=== PATIENT | female | born 1940 | race Caucasian/White ===

== ENCOUNTER → 2018-02-02 | Outpatient (CLI) | payer MEDICARE, OTHER ==
--- NOTE | 2018-02-02 14:15 | Diagnostic Imaging Report ---
PROCEDURE: CT ABDOMEN AND PELVIS WITHOUT CONTRAST COMPARISON:CT abdomen/pelvis 07/14/2008. INDICATIONS:CALCULUS OF KIDNEY TECHNIQUE: Axial CT images through the abdomen and pelvis were obtained without IV contrast. Coronal and sagittal reformations were created. DLP: 663.19 mGy-cm FINDINGS: Lung bases: Mild bibasilar scarring. There is diffuse bronchial wall thickening suggestive of chronic bronchitis. The anterior basal segment of the right lower lobe measures 5 mm and is stable. Noncalcified nodule in the lateral basal segment right lower lobe 4 mm and is stable. Cavitary lesion versus scar abutting the right lower lobe measures 10 x 8 mm and is new (image 10). Visualized portion of the mediastinum is normal. Liver: Normal attenuation. Low attenuating lesion in the inferior aspect of the left lobe measures 1.5 x 1.4 cm and was not present on previous exam (image 36). Spleen: Normal attenuation and size without mass. Biliary: Gallbladder is present and normal in appearance. No biliary ductal dilatation. Pancreas: No mass or duct dilatation. Adrenal Glands: No mass. Kidneys: Right kidney: 2 calculi in the upper pole each measure 1-2 mm. Isoattenuating lesion in the medial upper pole measures 1.4 x 1.4 cm and appears to be new. Low attenuating lesion in the medial upper pole cortex measures 1.6 x 1.4 cm and is grossly stable. Left kidney: Stable scarring. No calculus, cortical mass, or hydronephrosis. Vasculature: The aorta is ectatic with scattered atherosclerotic calcifications. No aneurysmal dilatation. GI: The stomach, small bowel, and large bowel are normal in diameter and wall thickness. Diverticulosis coli is present without associated inflammation. The appendix is normal. Peritoneum/Retroperitoneum: No free fluid or fluid collection. Bladder: Normal. No ureteral dilatation or calculus. Reproductive organs: The uterus is absent. There are no adnexal masses. Musculoskeletal: Levoscoliosis and superimposed degenerative changes are stable. No compression deformities or lytic/blastic lesions. CONCLUSION: 1. Punctate right renal calculi. No obstructive uropathy or evidence of recently passed stone. 2. Isoattenuating lesion in the right kidney should be further characterize with contrast-enhanced CT dedicated to the kidneys on an outpatient basis. 3. Low attenuating lesion in the liver can be further characterized with CT at the same time as the renal lesion. 4. Diverticulosis coli. No evidence of diverticulitis. 5. Scar versus cavitary lesion in the right lower lobe. Recommend CT of the chest to establish baseline for periodic surveillance. Dictated by: Melissa Mena M.D. on 02/02/2018 at 14:17 Electronically approved by: Melissa Mena M.D. on 02/02/2018 at 14:17
== END ==
LOC: CT 12:55
PROVIDERS: ATTEND Family Medicine
DX: R31.9 Hematuria, unspecified (principal)
CPT/HCPCS: 74176

== ENCOUNTER → 2018-02-05 | Outpatient (CLI) | payer MEDICARE, OTHER ==
[~2018-02-05] MED LIST: IOPAMIDOL 370 MG/ML 200 ML INFUS..BTL INJ ONE; SODIUM CHLORIDE 0.9% 50ML 50 ML ONE
--- NOTE | 2018-02-05 10:04 | Diagnostic Imaging Report ---
PROCEDURE: CT ABDOMEN WITH AND WITHOUT CONTRAST TECHNIQUE: The abdomen was scanned utilizing a multidetector helical scanner from the diaphragm to the iliac crest before and after the IV administration of 100 cc of Isovue 370. Coronal and sagittal multiplanar reformations were obtained. Renal mass protocol was performed. COMPARISON: CT abdomen and pelvis without contrast 02/03/28. INDICATIONS: RENAL MASS, LUNG NODULE FINDINGS: LOWER THORAX: Refer to the report for CT scan of the chest performed same day.. HEPATOBILIARY: No focal hepatic lesion. Previously described hypoattenuating lesion in the left lobe is not clearly identified on the current examination and may have represented hypoattenuation from the segment 3 branch of the left portal vein. SPLEEN: No splenomegaly. PANCREAS: No focal masses or ductal dilatation. ADRENALS: No adrenal nodules. KIDNEYS: Stable appearance of nonobstructing right upper pole renal calculus. 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 1.4 x 1.4 cm low-attenuation lesion and medially within the right kidney has attenuation characteristics as follows: Precontrast, 38 Hounsfield units Arterial phase: 35 Hounsfield units Venous phase: 35 Hounsfield units Delayed phase: 23 Hounsfield units Low-attenuation lesion more posteriorly within the right kidney is unchanged in size compared to the examination from 07/14/2018. Attenuation characteristics are as follows: Precontrast: 11 Hounsfield units Arterial phase: 14 Hounsfield units Venous phase: 23 Hounsfield units Excretory phase: 11 Hounsfield units No additional renal mass lesions. Excretory phase images show no filling defects within the upper collecting systems or proximal ureters. PERITONEUM / RETROPERITONEUM: No free air or fluid. LYMPH NODES: No retroperitoneal or mesenteric lymphadenopathy. VESSELS: Atherosclerotic calcification of the abdominal aorta, major branch vessels, and partially visualized iliac arterial systems. There is a mild stenosis of the proximal superior mesenteric artery. (Series 4 image 141). GI TRACT: Visualized portions of the bowel demonstrate no distention or wall thickening. BONES AND SOFT TISSUES: Scoliotic curvature of the lumbar spine with associated degenerative disc changes. Soft tissues are unremarkable. IMPRESSION: Low attenuation lesion within the medial aspect of the right kidney described on the comparison study shows no significant enhancement on postcontrast imaging, and is most compatible with a proteinaceous or hemorrhagic cyst. Low attenuation lesion in the left hepatic lobe described on the comparison examination is not identified on the current study and may have reflected hypoattenuation from the segment 3 branch of the left portal vein. Punctate nonobstructing right lower pole renal calculi, unchanged. Atherosclerotic vascular disease as above. Dictated by: Damon Aden M.D. on 02/05/2018 at 10:06 Electronically approved by: Damon Aden M.D. on 02/05/2018 at 10:06
--- NOTE | 2018-02-05 10:13 | Diagnostic Imaging Report ---
PROCEDURE: CT scan of the chest WITH intravenous contrast, using standard protocol. TECHNIQUE: The chest was scanned utilizing a multidetector helical scanner from the lung apex through the level of the adrenal glands after the IV administration of 100 cc of Isovue 370. Coronal and sagittal multiplanar reformations were obtained. COMPARISON: CT abdomen pelvis without contrast 02/02/2018. INDICATIONS: RENAL MASS FINDINGS: Lines/tubes: None. Lungs and Airways: No interval change in the previously described 1 cm x 0.8 cm juxtapleural cavitary lesion in the right lower lobe. 5 mm juxtapleural ground glass nodule laterally within the right lower lobe is also unchanged. Slightly more superiorly, there is a juxtapleural solid nodule measuring 1.1 cm. Scattered foci of linear opacity within the lingula, right middle lobe, and bilateral lower lobes may reflect atelectasis or post infectious or inflammatory scar. 4 mm nodule within the medial aspect of the left lower lobe seen on series 4 image 103. 3 mm nodule along the right minor fissure with adjacent 4 mm groundglass nodule seen on series 4 image 108 and 105. Pleura: No pleural effusion or pneumothorax. Heart and mediastinum: Visualized portions of the thyroid gland are normal. Atherosclerotic calcification of the aortic arch and great vessel origins which are otherwise of normal caliber. No ectasia or aneurysmal dilatation of the thoracic aorta. Pulmonary outflow tract is of normal caliber. No pericardial effusion. No axillary, hilar, or mediastinal lymphadenopathy. Soft tissues: No focal soft tissue abnormalities. Abdomen: Refer to CT abdomen with and without contrast also from 02/05/2018 for further description. Bones: No osseous destructive lesions. Scoliotic curvature with degenerative disc changes. IMPRESSION: Scattered bilateral pulmonary nodules measuring up to 1.1 cm as described above. A followup CT scan of the chest in 6 months is suggested to document stability. Dictated by: Damon Aden M.D. on 02/05/2018 at 10:15 Electronically approved by: Damon Aden M.D. on 02/05/2018 at 10:15
== END ==
LOC: CT 08:26
PROVIDERS: ATTEND Family Medicine
DX: R91.1 Solitary pulmonary nodule (principal); N28.81 Hypertrophy of kidney
CPT/HCPCS: 71260; 74170; Q9967

== ENCOUNTER → 2019-03-18 | Outpatient (CLI) | payer MEDICARE, OTHER ==
[2019-03-18 11:46] LABS: CREATININE, SERUM 0.91 mg/dL (0.57-1.11)
--- NOTE | 2019-03-18 15:12 | Diagnostic Imaging Report ---
EXAM: CT Chest without contrast 03/18/2019 12:43 PM INDICATION: Pulmonary nodule COMPARISON: Neither old films or chest CT studies are available at this time. TECHNIQUE: Chest was scanned utilizing a multidetector helical scanner from the lung apex through the level of the adrenal glands without administration of IV contrast. Coronal and sagittal reformations were obtained. Low dose technique was utilized with modulation performed to maintain the lowest dose possible to the patient. IV CONTRAST: None RADIATION DOSE: Total DLP: 243.86 mGy*cm Estimated effective dose: (DLP x 0.014 x size factor) mSv COMPLICATIONS: None FINDINGS: LINES/ TUBES: None. LUNGS AND AIRWAYS: Semisolid right upper lobe pulmonary nodule measures 6 mm (series 3, image 65). Solid right upper lobe pulmonary nodule measures 5.9 mm (series 3, image 69). A mixed cystic/solid right middle lobe pulmonary nodule measures 6.9 mm (series 3, image 93). A right lower lobe solid pleural-based nodule measures 9.8 mm (series 3, image 106). A lingular solid pulmonary nodule adjacent to the cardiac silhouette on the left measures 10.4 mm (series 3, image 90). The airways are normal. PLEURA: The pleural spaces are clear. HEART AND MEDIASTINUM: The thyroid gland is normal. No mediastinal, hilar or axillary lymphadenopathy. The heart is normal in size. Minimal thoracic aortic and coronary artery calcification. There is no pericardial effusion. UPPER ABDOMEN: There are small stones within both kidneys with the largest present in the upper pole of the right kidney measuring 3.6 cm. BONES: There are degenerative changes and scoliosis in the thoracic spine. SOFT TISSUES: Unremarkable. IMPRESSION: 1. Multiple pulmonary nodules as described above. 2. Follow-up CT low-dose protocol in 6 months is recommended. 3. Bilateral nonobstructing renal stones. Signed by: Dr. Timmy Ambrose DO on 03/18/2019 3:09 PM
== END ==
LOC: CT 10:43
PROVIDERS: ATTEND Family Medicine
DX: R91.8 Other nonspecific abnormal finding of lung field (principal); N20.0 Calculus of kidney; N28.81 Hypertrophy of kidney
CPT/HCPCS: 36415; 71250; 82565; 84520

== ENCOUNTER → 2019-09-09 | Outpatient (CLI) | payer MEDICARE, OTHER ==
--- NOTE | 2019-09-09 11:13 | Diagnostic Imaging Report ---
EXAM: CT Chest WITHOUT intravenous contrast 09/09/2019 10:16 AM INDICATION: Pulmonary nodule COMPARISON: Chest CT of 03/18/2019 and 02/05/2018 TECHNIQUE: Chest was scanned utilizing a multidetector helical scanner from the lung apex through the level of the adrenal glands without administration of IV contrast. Coronal and sagittal reformations were obtained. Routine protocol was performed. IV CONTRAST: None RADIATION DOSE: Total DLP: 419.3 mGy*cm. Dose modulation, iterative reconstruction, and/or weight based adjustment of the mA/kV was utilized to reduce the radiation dose to as low as reasonably achievable. COMPLICATIONS: None FINDINGS: LINES/ TUBES: None. LUNGS AND AIRWAYS: The central airways are patent. Previously described bilateral pulmonary nodules are all stable and/or decreased in conspicuity. For example, the peripheral right lower lobe nodule previously measuring 9 mm now measures 7 mm (series 5 image 88). There is scattered dependent nodularity in the right lower lobe which is new compared to the prior CT. New 7 mm posterior left lower lobe nodule (image 61). No pulmonary edema. PLEURA: The pleural spaces are clear. HEART AND MEDIASTINUM: The thyroid gland is normal. No mediastinal, hilar or axillary lymphadenopathy. The heart is normal in size.. There is no pericardial effusion. Mild scattered atherosclerotic calcifications of the coronary arteries and thoracic aorta. UPPER ABDOMEN: Limited non-contrast views of the upper abdomen show no abnormality within the visualized liver, spleen, pancreas, adrenals or kidneys. BONES: The visualized bony thorax is within normal limits. SOFT TISSUES: Unremarkable. IMPRESSION: New scattered nodularity in the dependent portions of the right upper and lower lobes and to a lesser extent lingula. Findings are most likely infectious or inflammatory. New 7 mm posterior left lower lobe subpleural pulmonary nodule. If the patient is low risk, recommend CT at 6-[address] at 18-24 months. If the patient is high risk, recommend CT at 6-[address] at 18-24 months. Signed by: Kait Ramsay MD on 09/09/2019 11:10 AM
== END ==
LOC: CT 10:11
PROVIDERS: ATTEND Internal Medicine Pulmonary Disease
DX: R91.8 Other nonspecific abnormal finding of lung field (principal)
CPT/HCPCS: 71250

== ENCOUNTER → 2020-03-31 | Outpatient (CLI) | payer MEDICARE, OTHER ==
--- NOTE | 2020-03-31 16:59 | Diagnostic Imaging Report ---
CT of the chest. Comparison: 09/09/2019 Clinical History: Follow-up of lung nodules Technique: Helical CT scan of the chest was performed from just above the thoracic inlet through the adrenal glands. Intravenous contrast administration was not utilized. Coronal and sagittal reconstructions were generated from the raw data. Multiple images were submitted for interpretation. This exam was performed according to our departmental dose-optimization program which includes automated exposure control, adjustment of the mA and/or kV according to patient size Discussion: Lung hylton: The majority of the previously seen lung nodules have resolved shrunken. For example one nodule in the left lung superior segment at image #61 is resolved. Another nodule in the right lung lower lobe at image #88 is much smaller in size. Another nodule in the right lung posterior basal segment and image #105 has decreased in size from 10 mm to 7 mm. Multiple areas of parenchymal and groundglass opacification in both lungs have resolved. This suggests an infectious/inflammatory basis for these lesions. There is also presence of dependent changes and subsegmental atelectasis in both lower lungs posteriorly. No new lung nodule is seen. Central airways: Unremarkable Pleural spaces and pleura: Unremarkable Pulmonary brianna: Normal Mediastinum: No significant lymphadenopathy Cardiac chambers and pericardium: Unremarkable Systemic great vessels: Atherosclerotic calcification of major vessels. It ascending aorta is dilated at 37 mm. Central pulmonary vessels: Unremarkable Thyroid: Unremarkable Lymph nodes: As above Azygos vein: Unremarkable The esophagus: Normal. Thoracic duct: Unremarkable Osseous structures: Unremarkable Upper abdomen: To the extent seen unremarkable Body wall: Unremarkable Breasts: Unremarkable Axilla: Unremarkable Lower neck: Unremarkable. Impression: Majority of the lung nodules and groundglass opacities have been stable, shrunken are resolved suggesting infectious/inflammatory etiology. If considered clinically relevant, a repeat chest CT at 18-24 months may be performed. Signed by: Hiren Keita MD on 03/31/2020 4:56 PM
== END ==
LOC: CT 15:45
PROVIDERS: ATTEND Internal Medicine Pulmonary Disease
DX: R91.8 Other nonspecific abnormal finding of lung field (principal)
CPT/HCPCS: 71250

== ENCOUNTER → 2020-08-07 | Outpatient (CLI) | payer MEDICARE, OTHER | LOC: LAB 14:36 | PROVIDERS: ATTEND Internal Medicine Pulmonary Disease | DX: Z11.8 Encounter for screening for other infectious and parasitic diseases (principal) | CPT/HCPCS: 87116; 87206 ==

== ENCOUNTER → 2025-01-05 | Outpatient (REF) | payer MEDICARE, OTHER | LOC: RAD 11:31 | PROVIDERS: ATTEND Internal Medicine Pulmonary Disease | DX: R06.02 Shortness of breath (principal) | CPT/HCPCS: 71046 ==

== ENCOUNTER → 2025-05-06 | Outpatient (REF) | payer MEDICARE, OTHER | LOC: CT 13:24 | PROVIDERS: ATTEND Internal Medicine Pulmonary Disease | DX: A31.2 Disseminated mycobacterium avium-intracellulare complex (DMAC) (principal) | CPT/HCPCS: 71250 ==